=== PATIENT | male | born 1950 | race Caucasian/White ===

== ENCOUNTER → 2020-11-07 | Outpatient (CLI) | payer MEDICARE ==
--- NOTE | 2020-11-07 13:20 | XR ---
KUB HISTORY: N21.9 Single frontal KUB submitted Bilateral kidney stones are present. Largest on the left measures approximately 18 mm. There are at l east 5 additional calcification suspected varying smaller sizes. Largest on the right measures 9 mm, approximately 5-6 smaller calcifications are present. Probable vascular calcifications noted within t he pelvis. There is a scoliosis noted in the lumbar spine with associated degenerative disc change. N o evidence of bowel obstruction or pneumoperitoneum. IMPRESSION: Bilateral nephrolithiasis.
== END | disposition home or self-care (01) ==
LOC: RADXRMAIN 10:33
PROVIDERS: ATTEND Urology
DX: N20.0 Calculus of kidney (principal)
CPT/HCPCS: 74018

== ENCOUNTER → 2020-11-28 | Outpatient (CLI) | payer MEDICARE ==
--- NOTE | 2020-11-28 14:45 | CT ---
EXAMINATION TYPE: CT abdomen pelvis wo con DATE OF EXAM: 11/28/2020 COMPARISON: KUB 11/07/2020 HISTORY: Left flank pain. CT DLP: 289.7 mGycm Automated exposure control for dose reduction was used. TECHNIQUE: Helical acquisition of images from the lung bases through the pelvis. FINDINGS: Lack of intravenous contrast could compromise sensitivity. LUNG BASES: There is some bronchiectasis noted greater on the right, subpleural bleb formation is pre sent along the right lateral chest margin, suggestion of hyper inflation which may be indicative of u nderlying COPD. AORTA: No significant abnormality is appreciated. LIVER/GB: There is a low dense focus in the lateral segment of the left lobe of the liver measuring 3 cm, additional focus of low-attenuation is present towards the dome which is subcentimeter in size a s are peripheral foci on axial image 13 within the lateral segment of the left lobe PANCREAS: No significant abnormality is seen. SPLEEN: No significant abnormality is seen. ADRENALS: No significant abnormality is seen. KIDNEYS: There are multiple calcifications in the bilateral kidneys. Both kidneys show associated low dense foci which may represent cortical cysts. Largest on the right is within the renal pelvis and m easures 15 mm. Calcification present within the lower pole of the left kidney measures approximately 1.9 cm. There is hydronephrosis on the left, left-sided hydroureter. At the level of the distal left ureter there are multiple calcifications present, at the level of the ureterovesical orifice there is a calcification measuring approximately 8 to 9 mm, more proximally smaller calcifications are presen t, too are suspected, larger measuring 3 to 4 mm. Punctate calcification is present just proximal to these 2 calcifications. On the right, there is no hydroureter or hydronephrosis. There are at least 5 -6 nonobstructive calculi involving the right kidney, at least 3-4 nonobstructive calculi on the left .. REPRODUCTIVE ORGANS: Prostate shows associated calcifications.. URINARY BLADDER: Thickened wall may be due to chronic outlet obstruction BOWEL: There is extensive diverticular change noted in the sigmoid colon region, abnormal wall thick ening is suspected at this level, difficult to exclude an underlying mass versus hypertrophy of the b owel wall, difficult to exclude some local infection, inflammatory change. Extensive diverticular jana nge also noted throughout the remainder of the colon. The appendix is normal. FREE AIR: No Free Air is visible. ASCITES: None visible. PELVIC ADENOPATHY: None visualized. RETROPERITONEAL ADENOPATHY: No Retroperitoneal Adenopathy visible. OSSEOUS STRUCTURES: Degenerative disc changes and facet arthropathy are noted especially in the lowe r lumbar spine. IMPRESSION: OBSTRUCTIVE LEFT DISTAL URETERAL CALCULI. BILATERAL NEPHROLITHIASIS, RENAL PELVIC STONE SEEN ON THE R IGHT. EXTENSIVE DIVERTICULOSIS, DIFFICULT TO EXCLUDE DIVERTICULITIS OR POSSIBLE SIGMOID COLON MASS, F OLLOW-UP IS RECOMMENDED. Additional findings above.
== END | disposition home or self-care (01) ==
LOC: RADCTMAIN 12:30
PROVIDERS: ATTEND Urology
DX: N20.2 Calculus of kidney with calculus of ureter (principal); K57.30 Diverticulosis of large intestine without perforation or abscess without bleeding
CPT/HCPCS: 74176

== ENCOUNTER → 2021-01-02 | Outpatient (CLI) | payer MEDICARE | END | disposition home or self-care (01) | LOC: LABPAT 10:48 | PROVIDERS: ATTEND Urology | DX: Z53.9 Procedure and treatment not carried out, unspecified reason (principal) ==

== ENCOUNTER 2021-01-10 07:34 | Day surgery (SDC) | payer MEDICARE ==
[2021-01-02 11:53] LABS: Basophils # (A) 0.1 k/uL (0-0.2); Basophils % (A) 1 %; Eosinophils # (A) 0.1 k/uL (0-0.7); Eosinophils % (A) 1 %; HCT 42.4 % (39.0-53.0); HGB 13.3 gm/dL (13.0-17.5); Lymphocytes # (A) 1.6 k/uL (1.0-4.8); Lymphocytes % (A) 18 %; MCH 30.9 pg (25.0-35.0); MCHC 31.3 g/dL (31.0-37.0); MCV 98.8 fL (80.0-100.0); Macrocytosis Slight; Mean Platelet Volume 7.4; Monocytes # (A) 0.5 k/uL (0-1.0); Monocytes % (A) 6 %; Neutrophils # (A) 6.5 k/uL (1.3-7.7); Neutrophils % (A) 73 %; Platelet Count 255 k/uL (150-450); RBC 4.29 m/uL (4.30-5.90); WBC 8.9 k/uL (3.8-10.6)
[2021-01-02 12:02] LABS: ALT 10 U/L (4-49); AST 21 U/L (17-59); African American GFR (CKD) >90 (>60 ml/min/1.73 sqM); Albumin 4.1 g/dL (3.5-5.0); Alkaline Phosphatase 87 U/L (38-126); Anion Gap 8 mmol/L; Blood Urea Nitrogen 15 mg/dL (9-20); Calcium 9.7 mg/dL (8.4-10.2); Carbon Dioxide 30 mmol/L (22-30); Chloride 101 mmol/L (98-107); Glucose 89 mg/dL (74-99); Non-African American GFR(CKD) 89 (>60 ml/min/1.73 sqM); Potassium 4.1 mmol/L (3.5-5.1); Sodium 139 mmol/L (137-145); Total Bilirubin 0.5 mg/dL (0.2-1.3); Total Protein 7.5 g/dL (6.3-8.2)
[2021-01-02 12:11] LABS: Appearance,Urine Cloudy (Clear); Bacteria,Urine Rare /hpf; Bilirubin,Urine Negative (Negative); Blood,Urine Moderate (Negative); Color,Urine Yellow; Glucose,Urine (UA) Negative (Negative); Hyaline Casts,Urine 7 /lpf (0-2); Ketones,Urine Negative (Negative); Leukocyte Esterase,Urine Large (Negative); Mucus,Urine Occasional /hpf; Nitrite,Urine Negative (Negative); Protein,Urine 1+ (Negative); RBC,Urine 33 /hpf (0-5); Specific Gravity,Urine 1.026 (1.001-1.035); Squamous Epithelial Cell,Urine <1 /hpf (0-4); Urobilinogen,Urine <2.0 mg/dL (<2.0); WBC,Urine 14 /hpf (0-5)
[2021-01-03 12:36] VITALS: BMI 21.1
--- NOTE | 2021-01-09 17:51 | P.GSHP ---
History of Present Illness H&P Date: 01/09/21 69 yo male who recently underwent a left ureteroscopy with laser lithotripsy for a large left ureteral stone. HE has bilateral renal stones, large The right renal stones[>2cm] will be removed percutaneously this admission. The risks , complications and alternatives have been discussed and accepted. - Constitutional Constitutional: Denies chills, Denies fever - EENT Eyes: denies blurred vision, denies pain Ears, nose, mouth and throat: Denies headache, Denies sore throat - Cardiovascular Cardiovascular: Denies chest pain, Denies shortness of breath - Respiratory Respiratory: Denies cough, Denies 7 - Gastrointestinal Gastrointestinal: Denies abdominal pain, Denies diarrhea, Denies nausea, Denies vomiting - Genitourinary (Female) Genitourinary: Denies dysuria, Denies hematuria - Genitourinary (Male) Genitourinary: Denies dysuria, Denies hematuria - Musculoskeletal Musculoskeletal: Denies myalgias - Integumentary Integumentary: Denies pruritus, Denies rash - Neurological Neurological: Denies numbness, Denies weakness - Psychiatric Psychiatric: Denies anxiety, Denies depression - Endocrine Endocrine: Denies fatigue, Denies weight change Past Medical History Past Medical History: Cancer, COPD, Hyperlipidemia, Hypertension, Osteoarthritis (OA) Additional Past Medical History / Comment(s): skin cancer, kidney stones, History of Any Multi-Drug Resistant Organisms: None Reported Past Surgical History: Orthopedic Surgery Additional Past Surgical History / Comment(s): left knee arthroscopy, lithotripsy, laser eye surgery Past Anesthesia/Blood Transfusion Reactions: No Reported Reaction Smoking Status: Current every day smoker - Past Family History Brother(s) Family Medical History: Deep Vein Thrombosis (DVT) Medications and Allergies Home Medications Medication Instructions Recorded Confirmed Type Omeprazole [PriLOSEC] 20 mg PO DAILY 07/27/13 01/03/21 History Ramipril 10 mg PO QAM 07/27/13 01/03/21 History Simvastatin [Zocor] 20 mg PO 1200 07/27/13 01/03/21 History Albuterol Sulfate [Proair 1 puff INHALATION DIRECTED PRN 01/03/21 01/03/21 History Digihaler] Aspirin [Adult Low Dose Aspirin EC] 81 mg PO DAILY 01/03/21 01/03/21 History Ibuprofen 800 mg PO Q8H PRN 01/03/21 01/03/21 History L.acidoph,Paracasei, B.lactis 1 each PO DAILY 01/03/21 01/03/21 History [Probiotic] Allergies Allergy/AdvReac Type Severity Reaction Status Date / Time acetaminophen [From Vicodin] AdvReac Nausea & Verified 01/03/21 12:24 Vomiting hydrocodone bitartrate AdvReac Nausea & Verified 01/03/21 12:24 [From Vicodin] Vomiting Surgical - Exam - General well developed, well nourished, no distress - Eyes normal ocular movement, no icteric - ENT no hearing loss - Neck no masses, trachea midline - Respiratory normal respiratory effort, clear to auscultation - Cardiovascular Rhythm: regular - Abdomen Abdomen: soft, non tender - Genitourinary normal penis with no external lesions, testicles present - Integumentary no rash, no growths - Neurologic normal coordination, normal sensation - Musculoskeletal normal gait, normal posture - Psychiatric oriented to time, oriented to person, oriented to place, speech is normal, memory intact Results - Labs 01/02/21 11:32 01/02/21 11:32 - Imaging CT scan - abdomen: report reviewed, image reviewed CT scan - pelvis: report reviewed, image reviewed Assessment and Plan Assessment: Impression: Right renal stones, painful, large, > 2cm Plan: Pcnl right
[~2021-01-10 07:34] MED LIST: .fentaNYL (PF) 50 MCG/ML 2 ML AMP IV PRN; DEXAMETHASONE SOD PHOSPHATE 4 MG/ML 1 ML VIAL IV ONE; MIDAZOLAM 2 MG/2 ML VIAL IV PRN; ONDANSETRON 4 MG/2 ML VIAL IVP ONE
[2021-01-10] MEDS: LACTATED RINGERS 1,000 ML IV SCH (08:40)
--- NOTE | 2021-01-10 08:47 | XR ---
EXAMINATION TYPE: XR KUB DATE OF EXAM: 01/10/2021 COMPARISON: 11/07/2020 HISTORY: Renal stones TECHNIQUE: One view abdominal series FINDINGS: The osseous structures are intact. The bowel gas pattern is nonspecific. There are 4 right-sided sandra al calculi the largest measuring 9 mm. There are at least 5 left-sided renal calculi the largest measuring 1.5 cm. There is a radiopaque den sity along the lateral margin of left abdomen. Curvature of the spine with scoliosis noted. Arthropathy of the hips. Calcifications the pelvis nonsp ecific. IMPRESSION: 1. Nonspecific abdomen. Bilateral nephrolithiasis.
[2021-01-10] MEDS ORDERED: GLYCOPYRROLATE 0.2 MG/ML 2 ML VIAL ONE (09:29)
[2021-01-10] MEDS ORDERED: PHENYLEPHRINE-0.9% NACL SYG 1,000 MCG/10 ML SYRINGE ONE (09:29)
[2021-01-10] MEDS ORDERED: ePHEDrine 50 MG/ML 1 ML AMP ONE (09:29)
[2021-01-10] MEDS ORDERED: NEOSTIGMINE 1 MG/ML 10 ML VIAL ONE (09:29)
[2021-01-10] MEDS ORDERED: .fentaNYL (PF) 50 MCG/ML 2 ML AMP ONE (09:29)
[2021-01-10] MEDS ORDERED: PROPOFOL 10 MG/ML 20 ML VIAL IV ONE (09:29)
[2021-01-10] MEDS ORDERED: SUCCINYLCHOLINE CHLORIDE 100 MG/5 ML SYR IV ONE (09:29)
[2021-01-10] MEDS ORDERED: ROCURONIUM 10 MG/ML (5 ML VIAL) IV ONE (09:29)
[2021-01-10] MEDS ORDERED: LIDOCAINE 1% INJ 10MG/ML (20 ML MDV) ONE (09:29)
[2021-01-10] MEDS ORDERED: HYDROmorphone (PF) 1 MG/ML ONE (09:29)
[2021-01-10] MEDS ORDERED: MIDAZOLAM 2 MG/2 ML VIAL ONE (09:29)
[2021-01-10] MEDS ORDERED: IOPAMIDOL-370 50ML BTL IRRIGATION ONE (10:16)
[2021-01-10] MEDS ORDERED: LACTATED RINGERS 1,000 ML IV ONE (11:00)
[2021-01-10] MEDS ORDERED: MAG HYDROX/AL HYDROX/SIMETH 30 ML CUP PO PRN (11:04)
[2021-01-10] MEDS ORDERED: ALBUTEROL NEBULIZED 2.5 MG/3 ML INHALATION PRN (11:04)
[2021-01-10] MEDS ORDERED: ACETAMINOPHEN TAB 325 MG TAB PO PRN (11:04)
[2021-01-10] MEDS ORDERED: HYDROmorphone PCA 10 MG/50 ML BAG IV PRN (11:07)
[2021-01-10] MEDS ORDERED: NALOXONE 0.4 MG/ML 1 ML VIAL IV PRN (11:07)
--- NOTE | 2021-01-10 11:13 | P.OP ---
Date of Procedure: 01/10/21 Preoperative Diagnosis: Right renal stones (large)( Postoperative Diagnosis: Same Procedure(s) Performed: Cystoscopy, placement of occluding balloon catheter right, percutaneous nephrostomy (Dr. cardenas), percutaneous nephrostolithotomy, placement of 10 J nephrostomy Anesthesia: ABBEY Surgeon: Nash Olvera Estimated Blood Loss (ml): 50 Pathology: other (Stone) Condition: stable Disposition: PACU Indications for Procedure: The patient is 70. He has painful large volume right renal stones. He also has left renal stones. I recently also get a left ureteroscopy laser lithotripsy. He comes for right percutaneous nephrostolithotomy. The stone volume on the right side is greater than 2 cm Description of Procedure: Patient is brought to the operating suite. He is given a general anesthetic on the transport gurney. He's placed in a frog position with a sterile prep and drape. Cystoscopy of the Foroblique lens and 22-[place] sheath identifies a normal urethra. The prostate is not obstructing. The right ureteral orifice is identified and intubated with a 5-[place] occluding balloon catheter passed into the renal pelvis. It is secured to a 16-[place]. The patient is placed in prone position with care to airways and extremities. Dr. Cardenas of radiology performed percutaneous access to her right lower pole calyx. I dilate the tract to 30-[place]. I introduced the rigid sheath into the collecting system. The larger renal pelvic stone was identified and has to be broken into smaller pieces with ultrasound. The fragments are grasped and removed. I then pass the flexible nephroscope into the upper pole. There are 2 stones that are identified. Each are basketed and removed. I then moved into a lower pole and identify another stone that is basketed and removed. At the end of the procedure I looked throughout the collecting system and see no remaining stone. Fluoroscopically there is also no stone. A 10 J nephrostomy tubes placed over the working wire and secured to the skin. The ureteral catheter and the working sheath removed. The patient's awakened and returned recovery room good condition. Blood loss is less than 50 ml. He tolerated procedure well be placed in the hospital postoperatively.
--- NOTE | 2021-01-10 11:30 | FL ---
EXAMINATION TYPE: FL Perc Nephrostomy New Access DATE OF EXAM: 01/10/2021 COMPARISON: NONE HISTORY: Right renal calculi Procedure had been discussed with the patient by Dr. Olvera, risks, benefits, alternatives, were dis cussed and any questions were answered. Informed consent was obtained. The patient was in a semipro ne position prepped and draped on the OR table in the usual sterile fashion. Utilizing a 15 cm lengt h [place] needle a single pass was made into a lower pole posterior calyx under fluoroscopic guidance. An 0.018 guidewire is passed through the needle and there was placement of a 6-Yi catheter sheat h system. There was conversion to a 0.035 system was performed with passage of a guidewire into the ureter utilizing a directional catheter. A second safety wire was placed. Remaining portion of pro cedure performed by . Approximately 1.38 minutes of fluoroscopy was provided. IMPRESSION: 1. Successful intraoperative right nephrostomy prior to nephrolithotomy.
[2021-01-10] MEDS: DEXTROSE 5%-0.45% NACL 1,000 ML IV SCH (12:34)
[2021-01-10] MEDS: ATORVASTATIN 10 MG TAB PO SCH (13:58)
[2021-01-10] MEDS: ONDANSETRON 4 MG/2 ML VIAL IVP PRN (14:10)
[2021-01-10] MEDS ORDERED: diphenhydrAMINE 25 MG CAP PO PRN (20:37)
[2021-01-11] MEDS: ONDANSETRON 4 MG/2 ML VIAL IVP PRN (03:31)
[2021-01-11 04:11] VITALS: RESP 18
[2021-01-11] MEDS: DEXTROSE 5%-0.45% NACL 1,000 ML IV SCH (06:10)
[2021-01-11 08:05] VITALS: BP 153/86; PULSE 68; TEMP 97.9
[2021-01-11] MEDS ORDERED: PANTOPRAZOLE 40 MG TABLET PO SCH (09:00)
[2021-01-11] MEDS ORDERED: lisinopriL 20 MG TAB PO SCH (09:00)
[2021-01-11] MEDS: LACTATED RINGERS 1,000 ML IV SCH (10:30)
--- NOTE | 2021-01-11 12:04 | P.DS ---
Providers Attending physician: Nash Olvera Primary care physician: Kayley Guardado [facility] Course: 70-year-old male underwent right-sided PCNL by Dr. Rolon on January 10, please see op note dated January 10 for surgery detail. Patient was admitted to the hospital postoperatively. He did well in the postoperative period. His catheter was removed on postoperative day #1. He was discharged home with the nephrostomy tube on postop day #1. He will follow-up next week for a nephrostomy tube removal at time of discharge was tolerating a diet, ambulating, pain was well-controlled Plan - Discharge Summary Discharge Rx Participant: No New Discharge Prescriptions: New Ketorolac [Toradol] 10 mg PO Q6HR #15 tab No Action Simvastatin [Zocor] 20 mg PO 1200 Ramipril 10 mg PO QAM Omeprazole [PriLOSEC] 20 mg PO DAILY Ibuprofen 800 mg PO Q8H PRN PRN Reason: Pain Aspirin [Adult Low Dose Aspirin EC] 81 mg PO DAILY L.acidoph,Paracasei, B.lactis [Probiotic] 1 each PO DAILY Albuterol Sulfate [Proair Digihaler] 1 puff INHALATION DIRECTED PRN PRN Reason: sob Discharge Medication List Omeprazole [PriLOSEC] 20 mg PO DAILY 07/27/13 [History] Ramipril 10 mg PO QAM 07/27/13 [History] Simvastatin [Zocor] 20 mg PO 1200 07/27/13 [History] Albuterol Sulfate [Proair Digihaler] 1 puff INHALATION DIRECTED PRN 01/03/21 [History] Aspirin [Adult Low Dose Aspirin EC] 81 mg PO DAILY 01/03/21 [History] Ibuprofen 800 mg PO Q8H PRN 01/03/21 [History] L.acidoph,Paracasei, B.lactis [Probiotic] 1 each PO DAILY 01/03/21 [History] Ketorolac [Toradol] 10 mg PO Q6HR #15 tab 01/11/21 [Rx] Activity/Diet/Wound Care/Special Instructions: Increase fluid intake You may change the dressing around the nephrostomy tube You may shower no baths It is normal see blood in the urine, from the nephrostomy tube
[2021-01-11] MEDS: ATORVASTATIN 10 MG TAB PO SCH (12:53)
== END 2021-01-11 14:26 | disposition home or self-care (01) ==
LOC: OR 07:34 → 6NMEDSUR 11:01 → OR 01-11 14:26
PROVIDERS: ATTEND Urology
DX: N20.0 Calculus of kidney (principal); J44.9 Chronic obstructive pulmonary disease, unspecified; E78.5 Hyperlipidemia, unspecified; I10 Essential (primary) hypertension; M19.90 Unspecified osteoarthritis, unspecified site; F17.200 Nicotine dependence, unspecified, uncomplicated
CPT/HCPCS: 50432 ×2; 94640; 86900; 86901; 80053; 85025; 86850; 81001; 88300; 87086; 87635; 74018; 36415; C1769 ×4; C2628; C1894; C1729; J2250; J1100; J2710; J0690; J2405 ×2; J2001; J3010; J1170 ×2; J2370; J0330; J2704; Q9967